=== PATIENT | female | born 1985 | race Caucasian/White ===

== ENCOUNTER 2020-09-27 16:53 | Emergency (ER) | payer OTHER ==
[~2020-09-27] VITALS: Ht 157.5 cm; Wt 54.5 kg
[2020-09-27 18:34] VITALS: BP 126/70
== END 2020-09-27 18:35 ==
LOC: EMS 16:53
DX: Z03.89 Encounter for observation for other suspected diseases and conditions ruled out (principal)
CPT/HCPCS: 71046; 96372; 99283